=== PATIENT | male | born 1990 | race Caucasian/White ===

== ENCOUNTER 2019-04-17 10:36 | Outpatient (CLI) | payer BC ==
--- NOTE | 2019-04-17 11:02 | ULT ---
[facility]: 04/17/2019 COMPARISON:None available HISTORY:Epigastric pain TECHNIQUE: Multiplanar grayscale sonographic imaging of [facility] upper quadrant FINDINGS:Imaged portions of the pancreas unremarkable. Pancreas partially obscured by bowel gas. No focal liver lesion or intrahepatic biliary dilatation. Echogenic mobile shadowing foci within the gallbladder lumen noted, consistent with cholelithiasis. No gallbladder wall thickening or pericholecystic fluid. The behavioral science chair reports a negative Melendez's sign. Right kidney measures 11.3 cm in craniocaudal dimension and demonstrates no stone, hydronephrosis, or mass. The common bile duct is normal in caliber, measuring 2 mm. IMPRESSION:Cholelithiasis. No sonographic evidence of cholecystitis or biliary dilatation.
== END 2019-04-17 10:37 | disposition home or self-care (01) ==
LOC: BICULT 10:36
PROVIDERS: ATTEND Internal Medicine
DX: R10.13 Epigastric pain (principal); R11.2 Nausea with vomiting, unspecified; K80.20 Calculus of gallbladder without cholecystitis without obstruction
CPT/HCPCS: 76705

== ENCOUNTER 2020-05-24 10:56 | Outpatient (CLI) | payer BC ==
[2020-05-24 12:24] LABS: #Basophils 0.1 10x3/uL (0.0-0.2); #Eosinphils 0.4 10x3/uL (0.0-0.5); #Monocytes 0.4 10x3/uL (0.0-1.1); #Neutrophils 2.7 10x3/uL (1.5-8.4); %Basophils 1.1 % (0.0-2.0); %Eosinophils 6.4 % (0.0-6.0); %Lymphocytes 34.9 % (18.0-47.0); %Neutrophils 49.4 % (40.0-75.0); Hemoglobin 15.3 g/dL (13.5-17.5); Mean Corpuscular HGB CONC 34.2 g/dL (32.0-36.0); Mean Corpuscular Hemoglobin 30.2 pg (27.0-33.0); Mean Corpuscular Volume 88.4 fl (81.2-95.1); Mean Platelet Volume 11.9 fl (7.4-10.4); Platelet Count 188 10x3/uL (150-450); RBC Distribution Width 12.3 % (11.5-14.5); Red Blood Cell (RBC) Count 5.07 10x6/uL (4.32-5.72); White Blood Cell (WBC) Count 5.5 10x3/uL (3.5-10.5)
[2020-05-24 12:48] LABS: ALT (SGPT) 40 U/L (8-55); AST (SGOT) 35 U/L (5-34); Albumin 4.9 g/dL (3.5-5.0); Alkaline Phosphatase 64 U/L (40-110); Anion Gap 14 mmol/L (10-20); BUN (Urea Nitrogen) 13 mg/dL (8.9-20.6); Bilirubin, Total 1.8 mg/dL (0.2-1.2); Calc. Creatinine Clearance 0 mL/min (70-130); Calcium 9.9 mg/dL (7.8-10.44); Carbon Dioxide 27 mmol/L (22-29); Chloride 106 mmol/L (98-107); Globulin 2.3 g/dL (2.4-3.5); Glucose 91 mg/dL (70-105); Potassium 4.6 mmol/L (3.5-5.1); Protein, Total 7.2 g/dL (6.0-8.3); Sodium 142 mmol/L (136-145)
[2020-05-25 04:20] LABS: SARS-CoV-2 PCR by NAA Not Detected (NotDetected)
== END 2020-05-24 10:57 | disposition home or self-care (01) ==
LOC: LABBT 10:56
PROVIDERS: ATTEND Specialist
DX: Z01.812 Encounter for preprocedural laboratory examination (principal); Z20.822 Contact with and (suspected) exposure to COVID-19
CPT/HCPCS: 80053; 85025; 87635; U0003; U0005

== ENCOUNTER 2020-05-27 08:52 | Day surgery (SDC) | payer BC ==
[2020-05-26 09:16] VITALS: BMI 22.5
[2020-05-27] MEDS ORDERED: Bupivacaine 0.25% HCL 30 ML VIAL ONE (09:57)
[2020-05-27] MEDS ORDERED: Ketorolac Tromethamine 30 MG/ML VIAL ONE (09:57)
[2020-05-27] MEDS ORDERED: Lidocaine 1% w/Epinephrine 1:100K 20 ML VIAL ONE (09:57)
[2020-05-27] MEDS ORDERED: Fentanyl 100 MCG/2 ML VIAL ONE ×2 (10:05)
[2020-05-27] MEDS ORDERED: Rocuronium Bromide 10 MG/ML (10ML VIAL) ONE (10:23)
[2020-05-27] MEDS ORDERED: Ondansetron PF 4 MG/2 ML Vial ONE (10:23)
[2020-05-27] MEDS ORDERED: ePHEDrine 50 MG/ML VIAL ONE (10:23)
[2020-05-27] MEDS ORDERED: Glycopyrrolate 0.2 MG/ML 5 ML SYRINGE ONE (10:23)
[2020-05-27] MEDS ORDERED: Dexamethasone 20 MG/5 ML VIAL ONE (10:23)
[2020-05-27] MEDS ORDERED: PROPOFOL 200 MG/20 ML VIAL ONE (10:23)
[2020-05-27] MEDS ORDERED: Lidocaine 1% PF 5 ML VIAL ONE (10:23)
[2020-05-27] MEDS ORDERED: Iothalamate Meglumine 60% 50 ML VIAL FS ONE (10:38)
[2020-05-27] MEDS ORDERED: HYDROcodone/Acetaminophen 5/325 mg Tablet ONE (12:53)
== END 2020-05-27 14:10 | disposition home or self-care (01) ==
LOC: SDC 08:52
PROVIDERS: ATTEND Specialist
PROC: 0FT44ZZ Resection of Gallbladder, Percutaneous Endoscopic Approach (ICD-10-PCS; principal; 2020-05-27)
PROC: BF121ZZ Fluoroscopy of Gallbladder using Low Osmolar Contrast (ICD-10-PCS; principal; 2020-05-27)
DX: K80.10 Calculus of gallbladder with chronic cholecystitis without obstruction (principal); E80.6 Other disorders of bilirubin metabolism; M41.9 Scoliosis, unspecified; J30.2 Other seasonal allergic rhinitis; Z79.899 Other long term (current) drug therapy; Z88.1 Allergy status to other antibiotic agents
CPT/HCPCS: 47532; 88304; J0690; J1100; J1885; J2405; J2704; J3010; J3490; Q9961; S0020